=== PATIENT | female | born 1960 | race Caucasian/White ===

== ENCOUNTER 2017-08-24 19:21 | Inpatient (IN) | payer MEDICAID ==
[~2017-08-24] VITALS: Ht 165.1 cm; Wt 66.4 kg
[2017-08-24 20:35] LABS: BASOPHIL % 0.5 % (0-2); PLATELET COUNT 165 x10^3mcL (130-400); RED CELL DISTRIBUTION WIDTH 13.3 % (11.5-14.5)
[2017-08-24 20:57] LABS: ALBUMIN 3.5 g/dL (3.4-5.0); ALKALINE PHOSPHATASE 56 U/L (46-116); ALT/SGPT 45 U/L (14-59); AST/SGOT 42 U/L (15-37); BILIRUBIN TOTAL 0.96 mg/dL (0.20-1.00); CALCIUM 9.4 mg/dL (8.5-10.1); CARBON DIOXIDE 21.9 mmol/L (21-32); CHLORIDE SERUM 99 mmol/L (98-107); CREATININE SERUM 1.8 mg/dL (0.6-1.0); GFR1 31 mL/min; GLUCOSE SERUM 70 mg/dL (74-106); SODIUM SERUM 138 mmol/L (136-145); TOTAL PROTEIN, SERUM 6.7 g/dL (6.4-8.2)
[2017-08-25 01:36] LABS: AMPHETAMINE QUAL UR NONE DETECTED (NEG <=1000)
[2017-08-25 05:05] LABS: BASOPHIL % 0.4 % (0-2); PLATELET COUNT 149 x10^3mcL (130-400); RED CELL DISTRIBUTION WIDTH 13.1 % (11.5-14.5)
[2017-08-25 05:13] LABS: CALCIUM 8.7 mg/dL (8.5-10.1); CREATININE SERUM 1.8 mg/dL (0.6-1.0); POTASSIUM SERUM 3.4 mmol/L (3.5-5.1)
[2017-08-25 18:21] LABS: CHOLESTEROL/HDL RATIO 2.8; MAGNESIUM 1.9 mg/dL (1.8-2.4); PHOSPHOROUS 1.5 mg/dL (2.5-4.9)
[2017-08-25 18:57] LABS: FREE T4 1.53 ng/dL (0.76-1.46); FREE THYROXINE INDEX 3.6 ug/dL (1.4-4.5); T3 TOTAL 0.86 ng/mL; T4(THYROXINE) 8.9 ug/dL (4.7-13.3)
[2017-08-25 21:16] LABS: UA SPECIFIC GRAVITY <=1.005 (1.005-1.035); microscopic required? YES; urine erythrocyte TRACE (NEGATIVE)
[2017-08-26 02:28] VITALS: BP 138/78
[2017-08-26 04:55] VITALS: BP 120/78
[2017-08-26 07:17] LABS: BASOPHIL % 0.4 % (0-2); PLATELET COUNT 142 x10^3mcL (130-400); RED CELL DISTRIBUTION WIDTH 13.5 % (11.5-14.5)
[2017-08-26 07:28] LABS: CALCIUM 8.9 mg/dL (8.5-10.1); CARBON DIOXIDE 24.1 mmol/L (21-32); CREATININE SERUM 1.7 mg/dL (0.6-1.0); MAGNESIUM 1.9 mg/dL (1.8-2.4); PHOSPHOROUS 2.3 mg/dL (2.5-4.9); POTASSIUM SERUM 3.1 mmol/L (3.5-5.1)
[2017-08-26 11:04] VITALS: BP 117/73
[2017-08-26 14:44] VITALS: BP 144/84
[2017-08-26 17:42] VITALS: BP 169/98
[2017-08-27 05:27] VITALS: BP 111/72
[2017-08-27 07:31] LABS: CALCIUM 8.1 mg/dL (8.5-10.1); CARBON DIOXIDE 22.8 mmol/L (21-32); CREATININE SERUM 1.7 mg/dL (0.6-1.0); MAGNESIUM 1.5 mg/dL (1.8-2.4); PHOSPHOROUS 2.1 mg/dL (2.5-4.9); POTASSIUM SERUM 4.1 mmol/L (3.5-5.1)
[2017-08-27 07:39] LABS: BASOPHIL % 0.8 % (0-2); PLATELET COUNT 136 x10^3mcL (130-400); RED CELL DISTRIBUTION WIDTH 13.8 % (11.5-14.5)
[2017-08-27 10:02] VITALS: BP 132/75
[2017-08-27 11:14] VITALS: Ht 165.1 cm; Wt 66.4 kg
[2017-08-27 13:05] VITALS: BP 132/75
[2017-08-27 18:00] VITALS: BP 153/86
[2017-08-27 21:55] VITALS: BP 129/75
[2017-08-28 04:58] VITALS: BP 122/72
[2017-08-28 06:58] LABS: BASOPHIL % 0.6 % (0-2); PLATELET COUNT 141 x10^3mcL (130-400); RED CELL DISTRIBUTION WIDTH 13.9 % (11.5-14.5)
[2017-08-28 07:49] LABS: CALCIUM 8.5 mg/dL (8.5-10.1); CARBON DIOXIDE 24.3 mmol/L (21-32); CREATININE SERUM 1.7 mg/dL (0.6-1.0); MAGNESIUM 2.1 mg/dL (1.8-2.4); PHOSPHOROUS 3.8 mg/dL (2.5-4.9); POTASSIUM SERUM 4.2 mmol/L (3.5-5.1)
[2017-08-28 08:30] VITALS: BP 130/76
[2017-08-28 13:10] VITALS: BP 127/84
[2017-08-28 18:27] VITALS: BP 137/88
[2017-08-28 20:30] VITALS: BP 136/76
[2017-08-29 04:29] VITALS: BP 108/70
[2017-08-29 06:52] LABS: BASOPHIL % 0.6 % (0-2); PLATELET COUNT 140 x10^3mcL (130-400); RED CELL DISTRIBUTION WIDTH 13.7 % (11.5-14.5)
[2017-08-29 07:15] LABS: CALCIUM 8.6 mg/dL (8.5-10.1); CARBON DIOXIDE 24.2 mmol/L (21-32); CREATININE SERUM 1.7 mg/dL (0.6-1.0); POTASSIUM SERUM 4.5 mmol/L (3.5-5.1)
[2017-08-29 08:51] VITALS: BP 119/67
[2017-08-29 16:51] VITALS: BP 129/83
[2017-08-29 19:40] VITALS: BP 139/85
[2017-08-29 20:44] VITALS: BP 129/71
[2017-08-30 05:36] VITALS: BP 118/65
[2017-08-30 06:05] LABS: BASOPHIL % 0.6 % (0-2); PLATELET COUNT 138 x10^3mcL (130-400); RED CELL DISTRIBUTION WIDTH 13.8 % (11.5-14.5)
[2017-08-30 08:14] LABS: CALCIUM 8.7 mg/dL (8.5-10.1); CARBON DIOXIDE 26.2 mmol/L (21-32); CREATININE SERUM 1.7 mg/dL (0.6-1.0); MAGNESIUM 1.8 mg/dL (1.8-2.4); PHOSPHOROUS 5.3 mg/dL (2.5-4.9); POTASSIUM SERUM 4.5 mmol/L (3.5-5.1)
[2017-08-30 08:38] VITALS: BP 115/76
[2017-08-30] MEDS ORDERED: LEVAQUIN750 MG PO (16:57)
[2017-08-30 17:35] VITALS: BP 115/76
[2017-08-30] MEDS ORDERED: VAL250 PO (17:36)
[2017-08-30] MEDS ORDERED: LAC PO (17:36)
[2017-08-30] MEDS ORDERED: BUS5 PO (17:36)
[2017-08-30] MEDS ORDERED: QUETIAPINE FUMA25 M1 PO (17:42)
== END 2017-08-30 18:32 | DRG 463 ==
LOC: ED 19:21 → MU 08-26 01:12 → DU 08-26 01:12 → MU 08-28 17:12
PROVIDERS: Emergency Medicine; Family Medicine; Family Medicine Sports Medicine
DX: N39.0 Urinary tract infection, site not specified (principal); N17.0 Acute kidney failure with tubular necrosis; G93.41 Metabolic encephalopathy; S00.81XA Abrasion of other part of head, initial encounter; R45.851 Suicidal ideations; E87.0 Hyperosmolality and hypernatremia; E83.39 Other disorders of phosphorus metabolism; F31.4 Bipolar disorder, current episode depressed, severe, without psychotic features; E87.6 Hypokalemia; Z68.24 Body mass index [BMI] 24.0-24.9, adult; Z91.19 Patient's noncompliance with other medical treatment and regimen
CPT/HCPCS: 82962; 83880; 84439; 90715; C9113; G0480; J1630; J1956; J2060; J3475; J3480; J7030

== ENCOUNTER 2017-09-09 20:45 | Inpatient (IN) | payer MEDICAID ==
[~2017-09-09] VITALS: Ht 162.6 cm; Wt 65.8 kg
[~2017-09-09 20:45] MED LIST: BUS5 PO; LAC PO; LEVAQUIN750 MG PO; QUETIAPINE FUMA25 M1 PO; VAL250 PO
[2017-09-09 20:55] VITALS: Ht 162.6 cm; Wt 65.8 kg
[2017-09-09] MEDS ORDERED: SEROQUEL25 MG PO (20:59)
[2017-09-09] MEDS ORDERED: BUSPIRONE HCL10 MG PO (21:00)
[2017-09-09] MEDS ORDERED: MIRTAZAPINE15 M2 PO (21:00)
[2017-09-09 21:36] LABS: BASOPHIL % 0.4 % (0-2); PLATELET COUNT 160 x10^3mcL (130-400); RED CELL DISTRIBUTION WIDTH 13.6 % (11.5-14.5)
[2017-09-09 21:49] LABS: CARBON DIOXIDE 25.3 mmol/L (21-32); CHLORIDE SERUM 104 mmol/L (98-107); CREATININE SERUM 1.7 mg/dL (0.6-1.0); GFR1 33 mL/min; GLUCOSE SERUM 83 mg/dL (74-106); POTASSIUM SERUM 3.8 mmol/L (3.5-5.1); SODIUM SERUM 142 mmol/L (136-145)
[2017-09-09 21:55] LABS: ALKALINE PHOSPHATASE 58 U/L (46-116); ALT/SGPT 29 U/L (14-59); AST/SGOT 24 U/L (15-37); BILIRUBIN TOTAL 0.66 mg/dL (0.20-1.00); TOTAL PROTEIN, SERUM 7.6 g/dL (6.4-8.2)
[2017-09-09 21:57] LABS: AMPHETAMINE QUAL UR NONE DETECTED (NEG <=1000)
[2017-09-10 03:09] LABS: microscopic required? YES; urine erythrocyte NEGATIVE (NEGATIVE)
[2017-09-10 04:17] LABS: PHOSPHOROUS 4.5 mg/dL (2.5-4.9)
[2017-09-10 04:19] LABS: CHOLESTEROL/HDL RATIO 5.3
[2017-09-10 04:26] LABS: T3 TOTAL 1.03 ng/mL
[2017-09-10 04:37] LABS: FREE T4 0.88 ng/dL (0.76-1.46); FREE THYROXINE INDEX 2.7 ug/dL (1.4-4.5); T4(THYROXINE) 7.6 ug/dL (4.7-13.3)
[2017-09-10] MEDS ORDERED: SEROQUEL25 MG PO ×2 (11:46→11:47)
[2017-09-10 12:33] VITALS: BP 125/72
[2017-09-10 12:45] VITALS: BP 125/72
[2017-09-10 13:40] VITALS: BP 141/80
[2017-09-10 14:25] LABS: MAGNESIUM 2.1 mg/dL (1.8-2.4); PHOSPHOROUS 4.4 mg/dL (2.5-4.9)
[2017-09-10 15:55] VITALS: BP 128/76
[2017-09-10 21:25] VITALS: BP 117/68
[2017-09-11 05:43] VITALS: BP 116/70
[2017-09-11 07:14] LABS: BASOPHIL % 0.3 % (0-2); PLATELET COUNT 137 x10^3mcL (130-400); RED CELL DISTRIBUTION WIDTH 13.6 % (11.5-14.5)
[2017-09-11 07:15] LABS: CALCIUM 9.1 mg/dL (8.5-10.1); CARBON DIOXIDE 21.6 mmol/L (21-32); MAGNESIUM 1.9 mg/dL (1.8-2.4); PHOSPHOROUS 3.3 mg/dL (2.5-4.9); POTASSIUM SERUM 4.3 mmol/L (3.5-5.1)
[2017-09-11 09:22] VITALS: BP 125/69
[2017-09-11 14:30] VITALS: BP 95/65
[2017-09-11 18:46] VITALS: BP 100/64
[2017-09-11 22:52] VITALS: BP 106/60
[2017-09-12 06:04] LABS: BASOPHIL % 0.6 % (0-2); RED CELL DISTRIBUTION WIDTH 14.3 % (11.5-14.5)
[2017-09-12 06:22] LABS: PLATELET COUNT 119 x10^3mcL (130-400)
[2017-09-12 06:25] LABS: CALCIUM 8.4 mg/dL (8.5-10.1); CARBON DIOXIDE 20.5 mmol/L (21-32); CREATININE SERUM 1.9 mg/dL (0.6-1.0); MAGNESIUM 1.8 mg/dL (1.8-2.4); PHOSPHOROUS 3.6 mg/dL (2.5-4.9); POTASSIUM SERUM 4.1 mmol/L (3.5-5.1)
[2017-09-12 06:30] VITALS: BP 129/81
[2017-09-12 08:43] VITALS: BP 121/64
[2017-09-12 16:54] VITALS: BP 133/79
[2017-09-12 21:20] VITALS: BP 109/66
[2017-09-13 06:05] VITALS: BP 121/63
[2017-09-13 06:55] LABS: BASOPHIL % 0.4 % (0-2)
[2017-09-13 07:00] LABS: CALCIUM 8.8 mg/dL (8.5-10.1); CARBON DIOXIDE 22.1 mmol/L (21-32); CREATININE SERUM 1.9 mg/dL (0.6-1.0); MAGNESIUM 1.8 mg/dL (1.8-2.4); PHOSPHOROUS 3.4 mg/dL (2.5-4.9); POTASSIUM SERUM 4.1 mmol/L (3.5-5.1)
[2017-09-13 07:08] LABS: PLATELET COUNT 122 x10^3mcL (130-400)
[2017-09-13 21:46] VITALS: BP 144/90
[2017-09-14 05:55] LABS: BASOPHIL % 0.3 % (0-2); RED CELL DISTRIBUTION WIDTH 13.7 % (11.5-14.5)
[2017-09-14 06:00] LABS: PLATELET COUNT 120 x10^3mcL (130-400)
[2017-09-14 06:12] VITALS: BP 126/87
[2017-09-14 06:30] LABS: CALCIUM 8.7 mg/dL (8.5-10.1); CARBON DIOXIDE 21.9 mmol/L (21-32); CREATININE SERUM 1.8 mg/dL (0.6-1.0); MAGNESIUM 1.8 mg/dL (1.8-2.4); PHOSPHOROUS 3.3 mg/dL (2.5-4.9); POTASSIUM SERUM 4.2 mmol/L (3.5-5.1)
[2017-09-14 10:11] VITALS: BP 117/82
[2017-09-14] MEDS ORDERED: SERO100 PO (17:41)
[2017-09-14] MEDS ORDERED: LAC PO (17:44)
[2017-09-14] MEDS ORDERED: CEL20 PO (17:58)
[2017-09-14] MEDS ORDERED: LEVAQUIN750 MG PO (18:01)
[2017-09-14 18:03] VITALS: BP 117/82
== END 2017-09-14 19:27 | disposition home or self-care (01) | DRG 720 ==
LOC: ED 20:45 → DU 09-10 11:37 → MU 09-10 11:37 → DU 09-10 12:18 → MU 09-11 07:59
PROVIDERS: Emergency Medicine; Family Medicine
DX: A41.9 Sepsis, unspecified organism (principal); N17.0 Acute kidney failure with tubular necrosis; N39.0 Urinary tract infection, site not specified; E87.0 Hyperosmolality and hypernatremia; R45.851 Suicidal ideations; Z88.0 Allergy status to penicillin; Z91.013 Allergy to seafood; Z90.710 Acquired absence of both cervix and uterus; F31.4 Bipolar disorder, current episode depressed, severe, without psychotic features; F20.9 Schizophrenia, unspecified; D64.9 Anemia, unspecified; Z91.19 Patient's noncompliance with other medical treatment and regimen; E87.8 Other disorders of electrolyte and fluid balance, not elsewhere classified; E78.5 Hyperlipidemia, unspecified
CPT/HCPCS: 82962; 83880; 84439; G0480; J1956; J7030

== ENCOUNTER 2017-09-21 17:58 | Emergency (ER) | payer MEDICAID ==
[~2017-09-21] VITALS: Ht 167.6 cm; Wt 66.5 kg
[~2017-09-21 17:58] MED LIST changes: +BUSPIRONE HCL10 MG PO; +CEL20 PO; +MIRTAZAPINE15 M2 PO; +SERO100 PO; +SEROQUEL25 MG PO
[2017-09-21 18:12] VITALS: Ht 167.6 cm; Wt 66.5 kg
[2017-09-21 19:10] LABS: AMPHETAMINE QUAL UR NONE DETECTED (NEG <=1000)
[2017-09-21 19:16] LABS: CALCIUM 9.6 mg/dL (8.5-10.1); CARBON DIOXIDE 22.3 mmol/L (21-32); CHLORIDE SERUM 106 mmol/L (98-107); CREATININE SERUM 1.7 mg/dL (0.6-1.0); GFR1 33 mL/min; GLUCOSE SERUM 92 mg/dL (74-106); POTASSIUM SERUM 3.3 mmol/L (3.5-5.1); SODIUM SERUM 140 mmol/L (136-145)
[2017-09-21 19:22] LABS: ALBUMIN 3.7 g/dL (3.4-5.0); ALKALINE PHOSPHATASE 51 U/L (46-116); ALT/SGPT 22 U/L (14-59); AST/SGOT 18 U/L (15-37); BILIRUBIN TOTAL 0.57 mg/dL (0.20-1.00); TOTAL PROTEIN, SERUM 7.1 g/dL (6.4-8.2)
[2017-09-21 19:48] LABS: BASOPHIL % 0.3 % (0-2); PLATELET COUNT 164 x10^3mcL (130-400); RED CELL DISTRIBUTION WIDTH 13.5 % (11.5-14.5)
[2017-09-22 20:04] VITALS: BP 121/74
== END 2017-09-22 20:04 | disposition short-term general hospital (02) ==
LOC: ED 17:58
PROVIDERS: Emergency Medicine
DX: R45.851 Suicidal ideations (principal); Z88.0 Allergy status to penicillin; Z88.8 Allergy status to other drugs, medicaments and biological substances
CPT/HCPCS: 36415; G0480

== ENCOUNTER 2017-10-23 14:48 | Emergency (ER) | payer SELFPAY ==
[~2017-10-23] VITALS: Ht 165.1 cm; Wt 70.3 kg
[2017-10-23 14:53] VITALS: Ht 165.1 cm; Wt 70.3 kg
[2017-10-23 15:54] LABS: CALCIUM 9.3 mg/dL (8.5-10.1); CARBON DIOXIDE 23.8 mmol/L (21-32); CHLORIDE SERUM 106 mmol/L (98-107); CREATININE SERUM 1.7 mg/dL (0.6-1.0); GFR1 33 mL/min; GLUCOSE SERUM 112 mg/dL (74-106); POTASSIUM SERUM 3.9 mmol/L (3.5-5.1); SODIUM SERUM 148 mmol/L (136-145)
[2017-10-23 15:55] LABS: BASOPHIL % 0.5 % (0-2); PLATELET COUNT 209 x10^3mcL (130-400); RED CELL DISTRIBUTION WIDTH 14.4 % (11.5-14.5)
[2017-10-23 16:00] LABS: ALBUMIN 3.6 g/dL (3.4-5.0); ALKALINE PHOSPHATASE 63 U/L (46-116); ALT/SGPT 44 U/L (14-59); AST/SGOT 25 U/L (15-37); TOTAL PROTEIN, SERUM 7.1 g/dL (6.4-8.2)
[2017-10-23 18:11] LABS: AMPHETAMINE QUAL UR NONE DETECTED (NEG <=1000)
[2017-10-23 20:42] VITALS: BP 141/82
== END 2017-10-23 20:42 | disposition home or self-care (01) ==
LOC: ED 14:48
PROVIDERS: Emergency Medicine
DX: R45.851 Suicidal ideations (principal); F32.9 Major depressive disorder, single episode, unspecified; Z88.0 Allergy status to penicillin; Z91.013 Allergy to seafood; Z90.710 Acquired absence of both cervix and uterus
CPT/HCPCS: 36415; 83880; 84439; G0480